=== PATIENT | female | born 1960 | race Caucasian/White ===

== ENCOUNTER 2025-03-17 06:23 | Day surgery (SDC) | payer MEDICARE, SELFPAY ==
--- OUTSIDE RECORDS SUMMARY | 2025-02-07 16:36 | XMS_ITS | Patient Health Record ---
Author Organization [facility] Address [address] [place] [address] Care Team Providers Care Admin Secretary Name Role Phone Tatiana George MD Primary Care Provider Franklin Cai Jr Allergies No Known Allergies Reason For Referral No Information Medications Medication SIG (Take, Route, Frequency, Duration) Notes Start Date End Date Status Losartan Potassium 25 MG 1 tablet Orally Once a day Active Simvastatin 5 MG 2 tablets in the dell ochoa Orally Once a day Active Social History Tobacco Use: Social History Observation Description Date Details (start date - stop date) Never Smoker NA - NA Tobacco Control (Standard) Question Answer Notes Tobacco use: Nonsmoker AUDIT-C (Standard) Question Answer Notes Did you have a drink contain ing alcohol in the past year? Yes How often did you have a dri nk containing alcohol in the past year? Never (0 point) How many drinks did you have on a typical day when you were drinking in the past year? 1 or 2 drinks (0 point) How often did you have six o r more drinks on one occasion in the past year? Never (0 point) Points 0 Interpretation Negative Vital Signs Blood pressure diastolic 77 mm Hg 12/01/2024 Height 62 in 12/01/2024 Blood pressure systolic 111 mm Hg 12/01/2024 Weight 167 lbs 12/01/2024 BMI 30.54 kg/m2 12/01/2024 Encounters Encounter Location Date Provider Diagnosis [facility] [address] [place] [address] 12/01/2024 Franklin Diehl Jr Encounter for screening for malignant neoplasm of colon Z12.11 ; Encounter for other preprocedural examination Z01.818 and History of adenomatous polyp of colon Z86.0101 [facility] [address] [place] [address] 12/01/2024 Franklin Diehl Jr Assessments Encounter Date Diagnosis (ICD Code) Assessment Notes Treatment Notes Treatment Clinical Notes Section Notes 12/01/2024 Encounter for screening for malignant neoplasm of colon (ICD-10 - Z12.11) We discussed colonoscopy today. We discussed risks and benefits of the procedure today. She understands these and agrees to proceed. This will be scheduled at her convenience. 12/01/2024 Encounter for other preprocedural examination (ICD-10 - Z01.818) We discussed colonoscopy today. We discussed risks and benefits of the procedure today. She understands these and agrees to proceed. This will be scheduled at her convenience. 12/01/2024 History of adenomatous polyp of colon (ICD-10 - Z86.0101) We discussed colonoscopy today. We discussed risks and benefits of the procedure today. She understands these and agrees to proceed. This will be scheduled at her convenience. Plan Of Treatment Future Test Test Name Order Date COLONOSCOPY 12/01/2024 Next Appt Details Provider Name:Franklin ramirez Jr, 03/17/2025 07:30:00 AM, [address] [facility] , [place], [place], [id number], Insurance Providers Payer Name Payer Address Payer Phone Subscriber Number Group Number Insured Name Patient Relationship to Insured Coverage Start Date Coverage End Date [facility] [address] [place] [address] [phone] [id number] [id number] DURBIN Self - patient is the insured Medical (General) History Medical History History ICD Code hypertension Hyperlipidemia Colonoscopy 03/16, hyperplast ic polyp, 5-year follow-up for possible history of adenomatous polyp Surgical History Surgery Date(Month/Year) section 1990
--- OUTSIDE RECORDS SUMMARY | 2025-02-07 16:36 | XMS_ITS | Clinical Summary ---
Author Organization [facility] [address] [place] [address] [place] [phone] Phone Care Team Providers Care Coke Still Cleaner Name Role Phone Tatiana George MD Primary Care Provider [phone] Allergies Active Allergy Reactions Criticality Noted Date Comments Amlodipine 06/03/2024 Facial flushing, feeling warm Medications simvastatin (ZOCOR) 5 mg tablet Take 1 tablet (5 mg total) by mouth at bedtime. at bedtime. 90 tablet 1 5 Active losartan (COZAAR) 25 mg tablet Take 2 tablets (50 mg total) by mouth at bedtime. 5 Active losartan (Cozaar) 50 mg tablet Take 1 tablet (50 mg total) by mouth at bedtime. Plus 25mg = 75 mg total 90 tablet 5 Active losartan (COZAAR) 25 mg tablet Take 1.5 tablets (37.5 mg total) by mouth 1 (one) time each day. 135 each 1 5 01/18/20 25 Discontinued Active Problems Problem Noted Date Diagnosed Date Obesity (BMI 30.0-34.9) 06/28/2021 HTN (hypertension) 03/16/2019 Hyperlipidemia 03/16/2019 Encounters Date Type Department Care Team Description 01/31/2025 3:30 PM EDT Office Visit Adult Medicine [address] [phone] Doris Gross PA Primary hypertension (Primary Dx) 01/17/2025 8:30 AM EDT Office Visit [address] [phone] Doris Gross PA Primary hypertension (Primary Dx) 12/22/2024 2:00 PM EDT Office Visit [place] [facility] [place] - [address] [phone] Tatiana George MD Routine general medical examination at a health care facility (Primary Dx); Primary hypertension; Other hyperlipidemia 12/12/2024 8:52 AM EDT - 12/12/2024 11:59 PM EDT Hospital Encounter Bone Density - [address] [phone] Postmenopausal; Screening for osteoporosis Discharge Disposition: Home or Self Care from Last 3 Months Immunizations Name Administration Dates Next Due Influenza Quadravalent, MDCK , 0.5ml, preservative free (Flucelvax) 6mo and older 05/15/2023 Influenza Quadravalent, MDCK , 0.5ml, with preservative (Flucelvax) 6mo and older 05/08/2022 Influenza trivalent, 0.5mL (Fluad) 65yo and olde r 04/15/2024 Influenza, Unspecified 06/11/2021 Pfizer (ages 12 & older) Bivalent, COVID-19 1009/2021 Pfizer SARS-CoV-2 COVID-19, mRNA, LNP-S, preservative free 10/24/2021 Pneumococcal conjugate 20 va lent (Prevnar 20, PCV 20) 2mo and older 11/13/2023 Tdap Tetanus diptheria acell ular pertussis (Boostrix; Adacel) 7yo and older 07/28/2019,03/22/2013 Surgical History Surgery Date Site/Laterality Comments SECTION COLONOSCOPY 07/2019 repeat 5 years SCREENING MAMMOGRAM 10/04/2024 Bilateral Medical History Medical History Date Comments HTN (hypertension) 03/16/2019 Hyperlipidemia 03/16/2019 Family History Medical History Relation Name Comments Coronary artery disease Father atri al fibrillation Heart attack Maternal Grandfather Heart failure Maternal Grandmother Hypertension Mother lymphoma Other: asbestosis Paternal Grandfather Pneumonia Paternal Grandmother 98 Relation Name Status Comments Father Maternal Grandfather Maternal Grandmother Mother Paternal Grandfather Paternal Grandmother Social History Tobacco Use Types Packs/Day Years Used Date Smoking Tobacco: Never Smokeless Tobacco: Never Tobacco Cessation:Counseling Given: Not Answered Alcohol Use Standard Drinks/Week Comments Not Currently 0 (1 standard drink = 0.6 oz pur e alcohol) Housing Instability Answer Date Recorde d Are you worried that in the next 2 months you may not have stable housing? No 06/13/2024 Food Access & Nutrition Answer Date Rec orded Do you have access to a vari ety of food including fruits and vegetables? Yes 06/13/2024 Health Literacy Answer Date Recorded How often do you need to hav e someone help you when you read instructions, pamphlets, or other written material from your doctor or pharmacy? Never 06/13/2024 Caregiver: How often do you need to have someone help you when you read instructions, pamphlets, or other written material from your doctor or pharmacy? Not on file 06/13/2024 Financial Risk Answer Date Recorded How hard is it for you to pa y for the very basics like food, housing, medical care, and air conditioning / heating? Not very hard 06/13/2024 Transportation Answer Date Recorded Has the lack of transportati on kept you from meetings, work, or from getting things needed for daily living? No Has the lack of transportati on kept you from medical appointments or from getting medications? No 06/13/2024 Social Isolation Answer Date Recorded How often do you feel lonely or isolated from th ose around you? Never 06/13/2024 Food Risk Answer Date Recorded Within the past 12 months we worried whether our food would run out before we got money to buy more. Never true 06/13/2024 Within the past 12 months th e food we bought just didn't last and we didn't have money to get more. Never true 06/13/2024 Dependent Care Answer Date Recorded Do you need help finding or paying for care for your loved ones. For example, attendant children's institution or elderly care for an older adult? No 06/13/2024 Education Answer Date Recorded Do you think completing more education or training, like finishing a GED, going to college, or learning a trade, would be helpful for you? No 06/13/2024 Employment and Income Answer Date Recor ded During the last four weeks, have you been actively looking for work? No 06/13/2024 Living Situation Answer Date Recorded What is your living situation? 1 08/13/2023 Comments Unknown Sex and Gender Information Value Date Recorded Sex Assigned at Not on file Legal Sex Female 1:27 AM EST Gender Identity Not on file Sexual Orientation Not on file Obstetrics History Last Filed Vital Signs Vital Sign Reading Time Taken Comments Blood Pressure 172/70 01/31/2025 4:04 PM EDT Pulse 68 01/31/2025 3:55 PM EDT Temperature 35.1 C (95.2 F) 01/31/2025 3:48 PM EDT Respiratory Rate 14 01/31/2025 3:48 PM EDT Oxygen Saturation 98% 01/17/2025 8:35 AM EDT Inhaled Oxygen Concentration - - Weight 75.3 kg (166 lb) 01/31/2025 3:48 PM EDT Height 157.5 cm (5' 2 ) 01/31/2025 3:48 PM EDT Body Mass Index 30.36 01/31/2025 3:48 PM EDT Plan of Treatment Upcoming Encounters Date Type Department Care Team (Late st Contact Info) Description 02/24/2025 8:30 AM EDT Office Visit Adult Medicine [facility] [address] [place] [address] Doris Gross PA [address] [place] [address] Health Maintenance Due Date Last Done Comments Zoster Vaccines (1 of 2) 2008 Medicare Annual Wellness Visit 07/05/2022 COVID-19 Vaccine ( season) 2024 04/28/2022, 10/24/2021, 05/22/2021, Additional history exists Colorectal Cancer Screening: Colonoscopy 08/10/2024 08/10/2019 Influenza Vaccine (#1) 2025 , 05/15/2023, 05/08/2022, Additional history exists Depression Screening 06/13/2025 06/13/2024 Falls Risk Assessment 06/13/2025 06/13/2024 Social Influencers of Health Screening 06/13/2025 06/13/2024 Breast Cancer Screening 10/04/2025 10/04/2024, 09/27 Hypertension/CHF/CAD Annual BMP Blood Test 12/12/2025 12/12/2024, 11/12/2023 DTaP,Tdap,and Td Vaccines (3 - Td or Tdap) 07/28/2029 07/28/2019, 03/22/2013 Cholesterol Screening (Lipid Panel) 12/12/2029 12/12/2024, 11/12/2023 RSV Immunization Adult Patients (1 - 1-dose 75+ series) 2033 Osteoporosis Screening (Bone Density Screening) 12/12/2034 12/12/2024 Hepatitis C Screening Completed 07/28/2019 Pneumococcal Vaccine: 50+ Years Completed 11/13/2023 HIB Vaccines Aged Out No longer eligi ble based on patient's age to complete this topic HPV Vaccines Aged Out No longer eligi ble based on patient's age to complete this topic Hepatitis A Vaccines Aged Out No long er eligible based on patient's age to complete this topic Hepatitis B Vaccines Aged Out No long er eligible based on patient's age to complete this topic IPV Vaccines Aged Out No longer eligi ble based on patient's age to complete this topic MMR Vaccines Aged Out No longer eligi ble based on patient's age to complete this topic Meningococcal ACWY Vaccine Aged Out N o longer eligible based on patient's age to complete this topic Meningococcal B Vaccine Aged Out No l onger eligible based on patient's age to complete this topic RSV Immunization Patients Under 20 months Aged Out No longer eligible based on patient's age to complete this topic Varicella Vaccines Aged Out No longer eligible based on patient's age to complete this topic Procedures Procedure Name Priority Date/Time Associated Diagnosis Comments COMPREHENSIVE METABOLIC PANEL Routine 12/12/2024 9:33 AM EDT Hypertension, unspecified type LIPID PANEL WITH REFLEX TO DIRECT LDL Routine 12/12/2024 9:33 AM EDT Hypertension, unspecified type BD BONE DENSITY DXA AXIAL SKELETON Routine 12/12/2024 9:06 AM EDT Postmenopausal Screening for osteoporosis EXTERNAL MAMMOGRAM REPORT 10/04/2024 HM COLONOSCOPY Routine 08/10/2019 HEPATITIS C SCREENING Routine 07/28/2019 from Last 3 Months or Most Recently Relevant to Health Maintenance Results * Lipid panel with reflex to direct LDL (12/12/2024 9:33 AM EDT) Cholesterol 185 0 - 200 mg/dL LAB CHEMISTRY METHOD 12/12/2024 2:14 PM EDT [facility] Triglycerides 105 0 - 150 mg/dL LAB CHEMISTRY METHOD 12/12/2024 2:14 PM EDT [facility] HDL 64 >=40 mg/dL LAB CHEMISTRY METHOD 12/12/2024 2:14 PM EDT [facility] LDL Calculated 100 0 - 100 mg/dL LAB CHEMISTRY METHOD 12/12/2024 2:14 PM EDT [facility] VLDL Cholesterol Jose C 21 mg/dL LAB CHEMISTRY METHOD 12/12/2024 2:14 PM EDT [facility] Non HDL Chol. (LDL+VLDL) 121 <145 mg/dL LAB CHEMISTRY METHOD 12/12/2024 2:14 PM EDT [facility] Chol/HDL Ratio 2.9 0.0 - 4.4 LAB CHEMISTRY METHOD 12/12/2024 2:14 PM EDT [facility] Blood Venous blood specimen / Unknown Venipuncture / Unknown 12/12/2024 9:33 AM EDT 12/12/2024 9:33 AM EDT us Kristie WITT LAB BLOOD ORDERABLES Final Resul t [facility] [address] [place] [address], * (ABNORMAL) Comprehensive metabolic panel (12/12/2024 9:33 AM EDT) Sodium 142 133 - 145 mmol/L LAB CHEMISTRY METHOD 12/12/2024 2:14 PM EDT [facility] Potassium 4.3 3.5 - 5.5 mmol/L LAB CHEMISTRY METHOD 12/12/2024 2:14 PM [facility] Chloride 108 96 - 110 mmol/L LAB CHEMISTRY METHOD 12/12/2024 2:14 PM [facility] CO2 28 21 - 32 mmol/L LAB CHEMISTRY METHOD 12/12/2024 2:14 PM [facility] Anion Gap 6 3 - 11 LAB CHEMISTRY METHOD 12/12/2024 2:14 PM [facility] Glucose 104(H) 70 - 100 mg/dL LAB CHEMISTRY METHOD 12/12/2024 2:14 PM [facility] BUN 12 5 - 25 mg/dL LAB CHEMISTRY METHOD 12/12/2024 2:14 PM [facility] Creatinine 0.89 0.50 - 1.10 mg/dL LAB CHEMISTRY METHOD 12/12/2024 2:14 PM [facility] eGFR 72 >=60 mL/min/1. 73m2 LAB CHEMISTRY METHOD 12/12/2024 2:14 PM [facility] Comment:Calculation based on the Chronic Kidney Disease Epidemiology Collaboration (CKD-EPI) equation refit without adjustment for race. BUN/Creatinine Ratio 13.5 LAB CHEMISTRY METHOD 12/12/2024 2:14 PM [facility] Calcium 9.0 8.5 - 10.5 mg/dL LAB CHEMISTRY METHOD 12/12/2024 2:14 PM [facility] AST (SGOT) 20 10 - 42 unit/L LAB CHEMISTRY METHOD 12/12/2024 2:14 PM [facility] ALT (SGPT) 20 10 - 60 unit/L LAB CHEMISTRY METHOD 12/12/2024 2:14 PM [facility] Alkaline Phosphatase 76 42 - 121 unit/L LAB CHEMISTRY METHOD 12/12/2024 2:14 PM [facility] Total Protein 6.9 6.0 - 8.0 g/dL LAB CHEMISTRY METHOD 12/12/2024 2:14 PM EDT [facility] Albumin 3.7 3.2 - 5.0 g/dL LAB CHEMISTRY METHOD 12/12/2024 2:14 PM EDT [facility] Total Bilirubin 0.8 0.0 - 1.4 mg/dL LAB CHEMISTRY METHOD 12/12/2024 2:14 PM EDT [facility] Blood Venous blood specimen / Unknown Venipuncture / Unknown 12/12/2024 9:33 AM EDT 12/12/2024 9:33 AM EDT us Kristie WITT LAB BLOOD ORDERABLES Final Resul t [facility] [address] [place] [address], * BD Bone Density DXA Axial Skeleton (12/12/2024 9:06 AM EDT) Anatomical Region Laterality Modality Wrist, Hip, L-spine Bone Densito metry 12/12/2024 9:24 AM EDT Impressions 12/12/2024 9:25 AM EDT Normal bone mineral density by WHO criteria. The [facility] Department of Internal Medicine recommends using National Osteoporosis Foundation (NOF) guidelines in treatment decisions related to osteoporosis. NOF guidelines suggest considering treatment for postmenopausal women and men aged 50 or older presenting with the following: History of hip or vertebral fracture. T-score = -2.5 (DXA) at the femoral neck, total hip, or spine, after appropriate evaluation to exclude secondary causes. Low bone mass (T-score between -1.0 and -2.5 at the femoral neck or spine) AND a 10-year probability of a hip fracture = 3% OR a 10-year probability of a major osteoporosis-related fracture = 20% based on the [place]-adapted WHO algorithm Please note that all treatment decisions require clinical judgment and consideration of individual patient factors, including patient preferences, co-morbidities, previous drug use, risk factors not captured in the FRAX model (e.g., frailty, falls, vitamin D deficiency, increased bone turnover, interval significant decline in bone density) and possible under- or over-estimation of fracture risk by FRAX. Optional alternative screening schedule based on po Serna., [facility] August 14, 2011 for patients with osteopenia (based on hip BMD T-score) is as follows: * advanced osteopenia (T scores -2.00 to -2.49), BMD testing every year * moderate osteopenia (T scores -1.50 to -1.99), BMD testing every 5 years mild osteopenia or normal BMD (T scores -1.50 and higher), BMD testing every 15 years -------- FINAL REPORT -------- Dictated By: Bibi Quintana Dictated Date: 12/12/2024 09:24 ET Assigned Physician: Bibi Quintana Reviewed and Electronically Signed By: Bibi Quintana Signed Date: 12/12/2024 09:25 ET Workstation ID: [id number] Transcribed By: Self Edit Transcribed Date: 12/12/2024 09:24 ET Narrative 12/12/2024 9:25 AM EDT BONE DENSITY SCAN (DEXA) FINDINGS: Lumbar Spine T-score is 1.6. (SD relative to 20-29 y/o adult) Z-score is 3.5. (SD relative to age matched peers) This is considered normal by WHO criteria. Left Hip T-score is 0.3. Z-score is 1.9. This is considered normal by WHO criteria. Comparison: None. Procedure Note Bibi Quintana MD - 12/12/2024 BONE DENSITY SCAN (DEXA) FINDINGS: Lumbar Spine T-score is 1.6. (SD relative to 20-29 y/o adult) Z-score is 3.5. (SD relative to age matched peers) This is considered normal by WHO criteria. Left Hip T-score is 0.3. Z-score is 1.9. This is considered normal by WHO criteria. Comparison: None. IMPRESSION: Normal bone mineral density by WHO criteria. The [facility] Department of Internal Medicine recommendsusing National Osteoporosis Foundation (NOF) guidelines in treatmentdecisions related to osteoporosis. NOF guidelines suggest consideringtreatment for postmenopausal women and men aged 50 or older presentingwith the following: History of hip or vertebral fracture. T-score = -2.5 (DXA) at the femoral neck, total hip, or spine, afterappropriate evaluation to exclude secondary causes. Low bone mass (T-score between -1.0 and -2.5 at the femoral neck or spine)AND a 10-year probability of a hip fracture = 3% OR a 10-year probabilityof a major osteoporosis-related fracture = 20% based on the [place]-adapted WHOalgorithm Please note that all treatment decisions require clinical judgment andconsideration of individual patient factors, including patientpreferences, co-morbidities, previous drug use, risk factors not capturedin the FRAX model (e.g., frailty, falls, vitamin D deficiency, increasedbone turnover, interval significant decline in bone density) and possibleunder- or over-estimation of fracture risk by FRAX. Optional alternative screening schedule based on po [facility] for patients with osteopenia (based on hip BMD T-score)is as follows: * advanced osteopenia (T scores -2.00 to -2.49), BMD testing every year * moderate osteopenia (T scores -1.50 to -1.99), BMD testing every 5years mild osteopenia or normal BMD (T scores -1.50 and higher), BMD testingevery 15 years -------- FINAL REPORT -------- Dictated By: Bibi Quintana Dictated Date: 12/12/2024 09:24 ET Assigned Physician: Bibi Quintana Reviewed and Electronically Signed By: Bibi Quintana Signed Date: 12/12/2024 09:25 ET Workstation ID: [id number] Transcribed By: Self Edit Transcribed Date: 12/12/2024 09:24 ET Kristie WITT [facility]ED[place] Final Result * External Mammogram Report (10/04/2024) Anatomical Region Laterality Modality Mammography Provider [facility] BI PROCEDURES Final Result * Hm Colonoscopy (08/10/2019) Colonoscopy no interpretation , abstracted Anatomical Region Laterality Modality Other Historical Provider HEALTH MAINTENANCE Final Result * Hepatitis C Screening (07/28/2019) Hepatitis C Screening ABSTRACTED us Historical Provider HEALTH MAINTENANCE Final Result from Last 3 Months or Most Recently Relevant to Health Maintenance Insurance [employer] - [place] MEDICARE ADVANTAGE Care Teams Coke Still Cleaner Relationship Specialty Start Date End Date Tatiana George MD [address] [place] [address] PCP - General Internal Medicine 06/18/21
[2025-03-15 09:25] VITALS: BMI 30.5
--- NOTE | 2025-03-16 09:27 | HO.ANESPROP2 ---
HPI - Anesthesia Eval Consult details Narrative: 64yo F for Colonoscopy PMFSH Past Medical History Medical History Hyperlipidemia HTN (hypertension) Surgical History Surgical History Hx of section H/O colonoscopy Social History Social History Are you a primary resident care manager to a significant other at home: No Do you presently have visiting nurse or other home services: No Patient Tobacco Use Status: Never used Tobacco Have you been hit, kicked, punched, or otherwise hurt by someone within the past year? If so, by whom?: No Are you DNR?: No Advance Directives: No Advance Directives Information Provided: Yes Patient : No Poor oral hygiene: No Meds Allergies Allergy/AdvReac Type Severity Reaction Status Date / Time No Known Allergies Allergy Verified 03/17/25 06:25 Home Medications ?Medication ?Instructions ?Recorded ?Confirmed ?Last Taken ?Type losartan 50 mg tablet 50 mg PO DAILY 03/15/25 03/15/25 Unknown History simvastatin 5 mg tablet 5 mg PO BEDTIME 03/15/25 03/15/25 Unknown History Exam Height,Weight and Vital Signs: Height 5 ft 2 in Weight 75.75 kg Assessment and Plan Assessment Anesthesia Assessment: Chart Reviewed
[2025-03-17 06:37] VITALS: BMI 30.2
[2025-03-17 06:50] VITALS: BP 150/63; PULSE 82; RESP 18; TEMP 36.6; O2SAT 99
[2025-03-17] MEDS: Lactated Ringers 1,000 ML 100 ML IVCONT (06:50)
--- NOTE | 2025-03-17 07:34 | P.HPSUR_ITS ---
Pre-Procedural Eval Section A - 24 Hr Update-Section A only Date of Service: 03/17/25 Section B - Complete if H&P > 30 days Chief Complaint: Encounter for screening for malignant neoplasm of Details of Present Illness: see H&P no changes Relevant Family History (Specify if Yes): No Relevant Social History: None Present Medications: see Short Stay Collaborative assessment Medical History: No relevant PMH History of Previous Operations: No relevant previous surgery Allergies: Allergies Allergy/AdvReac Type Severity Reaction Status Date / Time No Known Allergies Allergy Verified 03/17/25 06:25 Review of Systems Sugical H&P ROS: Negative: Constitution, Cardiovascular, Respiratory, Neurological, Psychiatric, Hem-Onc, Allergic/Immunologic, Gastrointestinal, Genitourinary, Musculoskeletal, Integumentary, Endocrine and Eyes/Ears/No se/Throat Exam Surgical H&P Exam: Normal: HEENT, Normal: Heart, Normal: Lungs, Normal: Extremities, Normal: Abdomen, Normal: Skin and Normal: Neurological Plan Diagnosis/Plan: Unchanged I have reviewed the history and physical and performed a pertinent physical examination on my patient. No changes have occurred unless specified. Time Spent With Patient Time: Total time managing care of this patient today ____ minutes.
--- NOTE | 2025-03-17 07:56 | HO.ANESPROP2 ---
[facility] Past Medical History Medical History Hyperlipidemia HTN (hypertension) Functional capacity: independent ambulation Patient : No Family History Family history of problems with anesthesia: No Surgical History Surgical History Hx of section H/O colonoscopy History of Problems with Anesthesia: No Social History Social History Are you a primary pediatric care coordinator to a significant other at home: No Do you presently have visiting nurse or other home services: No Patient Tobacco Use Status: Never used Tobacco Have you been hit, kicked, punched, or otherwise hurt by someone within the past year? If so, by whom?: No Are you DNR?: No Advance Directives: No Advance Directives Information Provided: Yes Poor oral hygiene: No Meds Allergies Allergy/AdvReac Type Severity Reaction Status Date / Time No Known Allergies Allergy Verified 03/17/25 06:25 Active Medications: Current Medications Lactated Ringer's (Lr) 1,000 mls @ 100 mls/hr IVCONT .Q10H PHYLLIS Last Admin: 03/17/25 06:50 Dose: 100 mls/hr Home Medications ?Medication ?Instructions ?Recorded ?Confirmed ?Last Taken ?Type losartan 50 mg tablet 50 mg PO DAILY 03/15/25 03/15/25 Unknown History simvastatin 5 mg tablet 5 mg PO BEDTIME 03/15/25 03/15/25 Unknown History Exam Height,Weight and Vital Signs: Height 5 ft 2 in Weight 74.843 kg Last Vital Signs Temp 97.9 F 03/17/25 06:50 Pulse 82 03/17/25 06:50 Resp 18 03/17/25 06:50 BP 150/63 H 03/17/25 06:50 Pulse Ox 99 03/17/25 06:50 O2 Del Method Room Air 03/17/25 06:50 Airway Mallampati Class: II TM Dist: >3cm Neck ROM: Full Heart: RRR Lungs: CTA Assessment and Plan Assessment Anesthesia Assessment: Anesthesia Plan Discussed Final Anesthetic Review Family History of Problems with Anesthesia: No History of Problems with Anesthesia: No NPO: Yes Final Preanesthetic Review: Meds/Allgs Chart Reviewed, Consent Obtained/Reviewed and Anes Risks/Benef Reviewed Patient Risk: Low Procedure Risk: Low Anesthetic Plan Anesthetic Plan: MAC: Disposition: Standard PACU
[2025-03-17 08:05] VITALS: BP 97/44; PULSE 68; RESP 16; TEMP 36.6; O2SAT 94
--- NOTE | 2025-03-17 08:10 | PM.OP ---
Brief Operative Note Date of Service: 03/17/25 Pre-op diagnosis: screeening Post-op diagnosis: same Procedure: colonscopy Surgeon: Franklin Diehl MD Anesthesia: MAC Was an [employer] used for this Procedure?: No Estimated blood loss (mL): 0 Pathology: none sent Condition: stable Disposition: PACU
[2025-03-17 08:27] VITALS: BP 114/57; PULSE 66; RESP 18; TEMP 36.5; O2SAT 97
--- NOTE | 2025-03-17 08:30 | OP_ITS ---
DATE OF SERVICE: 03/17/2025 SURGEON: Franklin Diehl MD INDICATIONS: Colon cancer screening and prior history of colon polyps. PREOPERATIVE DIAGNOSIS: POSTOPERATIVE DIAGNOSIS: PROCEDURE PERFORMED: Colonoscopy to the cecum. ESTIMATED BLOOD LOSS: COMPLICATIONS: ANESTHESIA: Monitored anesthesia care. ASSISTANTS: SPECIMENS: DESCRIPTION OF PROCEDURE: History and physical performed, the risks and benefits of the procedure were explained to the patient. Informed consent was obtained. The patient was placed in the left lateral decubitus position. A digital rectal exam was performed and was found to be normal. The Olympus pediatric video colonoscope was introduced into the rectum and advanced to the cecum. The cecum was identified by transillumination, palpation, and identification of ileocecal valve. Examination was performed. The scope was removed. She tolerated the procedure well and was taken to recovery area in stable condition. FINDINGS: The terminal ileum was briefly 1% appeared normal. The visualized colonic mucosa was within normal limits without evidence of masses or ulcers. No polyps were identified. Retroflexed examination showed small internal hemorrhoids and hypertrophic anal papillae. There was moderate to extensive sigmoid diverticulosis. IMPRESSION: Normal colonoscopy. RECOMMENDATIONS: 1. Follow up as needed. 2. Repeat colonoscopy is recommended in 10 years for average-risk individuals. MD AMELIA Tilley/KARYNA / [phone]
--- NOTE | 2025-03-17 08:59 | HO.POSTANES ---
Post Anesthesia Evaluation Post Anesthesia Evaluation Date of Service: 03/17/25 Vital Signs: Vital Signs Temp Pulse Resp BP Pulse Ox O2 Del Method 03/17/25 08:27 97.7 F 66 18 114/57 L 97 Room Air 03/17/25 08:05 97.9 F 68 16 97/44 L 94 Room Air 03/17/25 06:50 97.9 F 82 18 150/63 H 99 Room Air Anesthesia: Monitored Mental Status: Awake Pain Control: Satisfactory Nausea/Vomiting: None Hydration: Adequate Anesthesia-Related Issues: No Anes. Related Issues
== END 2025-03-17 08:37 | disposition home or self-care (01) ==
PROVIDERS: PCP Internal Medicine; Visit Provider Internal Medicine Gastroenterology
PROC: 0DJD8ZZ Inspection of Lower Intestinal Tract, Via Natural or Artificial Opening Endoscopic (ICD-10-PCS; CPT 45378; principal; 2025-03-17 07:30)
DX: Z12.11 Encounter for screening for malignant neoplasm of colon (principal); Z86.0101 Personal history of adenomatous and serrated colon polyps; K57.30 Diverticulosis of large intestine without perforation or abscess without bleeding; K64.8 Other hemorrhoids; K62.89 Other specified diseases of anus and rectum; I10 Essential (primary) hypertension; E78.5 Hyperlipidemia, unspecified; Z98.890 Other specified postprocedural states; Z79.899 Other long term (current) drug therapy
CPT/HCPCS: G0105; J2003; J2704